=== PATIENT | female | born 1970 | race Caucasian/White ===

== ENCOUNTER 2017-09-04 07:05 | Day surgery (SDC) | payer OTHER ==
[~2017-09-04] VITALS: Ht 165.1 cm; Wt 105.1 kg
[~2017-09-04 07:05] MED LIST: ALBUIS INH; BENZ100A; CYCL10 PO; FURO20; HYDACE10B PO; HYDACE5 PO; HYDCHL12.5; HYDR1TAB94; IBUP800 PO; LEVFLO500 PO; LEVSOD100 PO; LORA2 PO; META800 PO; NAPR500 PO; NAPR500ERA; Neurontin 300300 MG PO; PRED20 PO; PREG100 PO; RXHYDACE PO
[2018-05-17] MEDS ORDERED: Vibramycin100 MG PO (12:07)
== END 2017-09-04 10:45 | disposition home or self-care (01) ==
LOC: ORSCSDS 07:05
PROVIDERS: Orthopaedic Surgery
PROC: 0SBC4ZZ Excision of Right Knee Joint, Percutaneous Endoscopic Approach (ICD-10-PCS; principal; 2017-09-04 08:45)
DX: M22.41 Chondromalacia patellae, right knee (principal); E03.9 Hypothyroidism, unspecified; E66.01 Morbid (severe) obesity due to excess calories; Z68.38 Body mass index [BMI] 38.0-38.9, adult; Z79.899 Other long term (current) drug therapy; Z87.891 Personal history of nicotine dependence
CPT/HCPCS: J0171; J0690; J2250; J2405; J3010; J7120

== ENCOUNTER → 2017-10-22 | Outpatient (CLI) | payer OTHER ==
[~2017-10-22] MED LIST changes: +Vibramycin100 MG PO
== END ==
LOC: LAB EV 16:07
DX: N39.0 Urinary tract infection, site not specified (principal)
CPT/HCPCS: 87077; 87086; 87147; 87186

== ENCOUNTER 2018-05-19 14:27 | Emergency (ER) | payer OTHER ==
[~2018-05-19] VITALS: Ht 165.1 cm; Wt 94.8 kg
== END 2018-05-19 15:57 | disposition home or self-care (01) ==
LOC: ER 14:27
DX: Z48.817 Encounter for surgical aftercare following surgery on the skin and subcutaneous tissue (principal); Z91.038 Other insect allergy status; Z88.1 Allergy status to other antibiotic agents; Z87.891 Personal history of nicotine dependence; Z79.899 Other long term (current) drug therapy

== ENCOUNTER 2019-01-05 02:37 | Day surgery (SDC) | payer OTHER | END 2019-01-06 23:00 | disposition home or self-care (01) | LOC: US 02:37 | DX: R59.0 Localized enlarged lymph nodes (principal); Z87.891 Personal history of nicotine dependence; Z79.899 Other long term (current) drug therapy; Z91.030 Bee allergy status | CPT/HCPCS: 76942; 88305 ==

== ENCOUNTER → 2021-10-30 | Outpatient (CLI) | payer OTHER ==
[2021-10-30 15:36] LABS: Source, Urine Clean Catch
[2021-10-30 17:35] LABS: Appearance, Urine Hazy (Clear); Bilirubin, Urine Neg (Neg); Blood, Urine Neg (Neg); Color, Urine Yellow (P-Yellow); Glucose Qualitative, Urine Neg (Neg); Ketones, Urine Neg (Neg); Leukocyte Esterase, Urine 1+ (Neg); Nitrite, Urine Neg (Neg); Protein, Urine Neg (Neg); Urobilinogen, Urine NORM (Normal)
[2021-10-30 18:18] LABS: Bacteria Many /hpf; Red Blood Cells, Urine Rare /hpf (0-2); Squamous Epithelial Cells Many /hpf (Few)
== END | disposition home or self-care (01) ==
LOC: LAB SHORT 12:10
PROVIDERS: Internal Medicine
DX: R82.90 Unspecified abnormal findings in urine (principal)
CPT/HCPCS: 81001; 87077; 87086; 87186

== ENCOUNTER → 2023-04-17 | Outpatient (CLI) | payer OTHER | END | disposition home or self-care (01) | LOC: LAB SHORT 13:56 → LAB 13:56 | DX: R07.9 Chest pain, unspecified (principal) | CPT/HCPCS: 84484 ==

== ENCOUNTER → 2025-07-04 | Outpatient (CLI) | payer OTHER ==
[~2025-07-04] MED LIST changes: +HYDROCODONE-AC1 EA19 PO
[2025-07-04 14:26] LABS: Source, Urine Clean Catch
[2025-07-04 17:50] LABS: Bilirubin, Urine Neg (Neg); Color, Urine Yellow (P-Yellow); Glucose Qualitative, Urine Neg (Neg); Ketones, Urine Neg (Neg); Leukocyte Esterase, Urine 1+ (Neg); Protein, Urine Neg (Neg); Specific Gravity, Urine 1.020 (1.003-1.022); Urobilinogen, Urine NORM (Normal)
[2025-07-04 18:10] LABS: Red Blood Cells, Urine 0-2 /hpf (0-2)
== END | disposition home or self-care (01) ==
LOC: LAB SHORT 14:24 → LAB 14:24 → LAB FUT 07-03 10:25 → EDSTATUS 07-03 10:25
PROVIDERS: Internal Medicine
DX: N39.0 Urinary tract infection, site not specified (principal)
CPT/HCPCS: 81001; 87086